=== PATIENT | female | born 1950 | race Caucasian/White ===

== ENCOUNTER 2016-08-09 02:26 | Emergency (ER) | payer OTHER ==
--- NOTE | ~2016-08-09 | CR132 ---
[facility]. [facility] A Service of [facility] RADIOLOGY TEXT RESULTS PATIENT: HERNESTO HOBSON LOCATION: SED : 48 UNIT #: [id number] AGE: [address]: Beto Ahmadi MD SEX: F ORDER DR: [id number] [place] [id number] E MR#: [id number] Acc #: [id number] NAME: HERNESTO HOBSON : 1950 SEX: F STUDY DATE/TIME: 08/09/2016 2:05 UNIT: SED ROOM: STUDY DESCRIPTION: CR Forearm 2 View Lt Attending Physician: Beto Ahmadi M.D. Ordering Physician: Beto Ahmadi M.D. Primary Care Physician: Jose iSegel M.D. MEDICAL IMAGING REPORT This report is preliminary unless electronic signature is present. EXAM Left forearm INDICATION 56-year female with left forearm pain and inability to use the arm after falling at home today. FINDINGS Bones are anatomically aligned. No evidence of acute fracture. IMPRESSION No acute fracture or dislocation of the left forearm. Dictated by... Florentin Hess M.D. THIS IS AN ELECTRONICALLY VERIFIED REPORT Florentin Hess M.D. at 08/13/2016 9:17 AM Iftikhar TD: 08/09/2016 08:46 JOB #: [id number] MEDICAL IMAGING REPORT
--- NOTE | ~2016-08-09 | CR156 ---
[facility]. [facility] A Service of [facility] RADIOLOGY TEXT RESULTS PATIENT: HERNESTO HOBSON LOCATION: SED : 49 UNIT #: [id number] AGE: [address]: Beto Ahmadi MD SEX: F ORDER DR: [id number] [place] [id number] E MR#: [id number] Acc #: [id number] NAME: HERNESTO HOBSON : 1950 SEX: F STUDY DATE/TIME: 08/09/2016 2:05 UNIT: SED ROOM: STUDY DESCRIPTION: CR Humerus Min 2 View Lt Attending Physician: Beto Ahmadi M.D. Ordering Physician: Beto Ahmadi M.D. Primary Care Physician: Jose Siegel M.D. MEDICAL IMAGING REPORT This report is preliminary unless electronic signature is present. EXAM Left humerus, 2 views COMPARISON 2 views of the left forearm on the same day. INDICATION 66-year-old female with left upper arm pain and inability to use the left arm after falling at home today. FINDINGS Left humerus is intact and anatomically aligned. No significant degenerative change. IMPRESSION No acute fracture or dislocation of the left humerus. Dictated by... Florentin Hess M.D. THIS IS AN ELECTRONICALLY VERIFIED REPORT Florentin Hess M.D. at 08/13/2016 9:17 AM JENNIFER/koby TD: 08/09/2016 09:44 JOB #: [id number] MEDICAL IMAGING REPORT
--- NOTE | ~2016-08-09 | CR281 ---
[facility] A Service of [facility] RADIOLOGY TEXT RESULTS PATIENT: HERNESTO HOBSON LOCATION: SED : 49 UNIT #: [id number] AGE: [address]: Beto Ahmadi MD SEX: F ORDER DR: [id number] [place] [id number] E MR#: [id number] Acc #: [id number] NAME: HERNESTO HOBSON : 1950 SEX: F STUDY DATE/TIME: 08/09/2016 2:34 UNIT: SED ROOM: STUDY DESCRIPTION: CR Wrist Min 3 View Lt Attending Physician: Beto Ahmadi M.D. Ordering Physician: Beto Ahmadi M.D. Primary Care Physician: Jose Siegel M.D. MEDICAL IMAGING REPORT This report is preliminary unless electronic signature is present. EXAM Left wrist, 3 views COMPARISON None INDICATION 66-year-old female with left wrist pain and inability to use the arm after falling at home today. FINDINGS Osteophyte formation at the head of the first metacarpal. There is mild joint space narrowing at the first carpometacarpal joint and at the triscaphe joint. Subchondral cystic change is seen in the lunate, degenerative in nature. Possible exostosis at the ulnar styloid versus remote healed fracture. This may also be developmental in nature. Bones are anatomically aligned. No evidence of acute fracture. IMPRESSION 1. No acute fracture or dislocation of the left wrist. 2. Degenerative changes as described in the body of the report. Dictated by... Florentin Hess M.D. THIS IS AN ELECTRONICALLY VERIFIED REPORT Florentin Hess M.D. at 08/13/2016 11:07 AM JENNIFER/jody TD: 08/09/2016 08:48 JOB #: [id number] [facility] A Service [facility] RADIOLOGY TEXT RESULTS PATIENT: HERNESTO HOBSON LOCATION: SED : 49 UNIT #: [id number] AGE: [address]: Beto Ahmadi MD SEX: F ORDER DR: MEDICAL IMAGING REPORT
== END 2016-08-09 03:47 | disposition home or self-care (01) ==
LOC: SED 02:26
DX: S52.612A Displaced fracture of left ulna styloid process, initial encounter for closed fracture (principal); G62.9 Polyneuropathy, unspecified; F17.200 Nicotine dependence, unspecified, uncomplicated; Z88.0 Allergy status to penicillin; Z88.5 Allergy status to narcotic agent; W18.30XA Fall on same level, unspecified, initial encounter; Y92.009 Unspecified place in unspecified non-institutional (private) residence as the place of occurrence of the external cause
CPT/HCPCS: 29125; 73060; 73090; 73110; 99283; 99284